=== PATIENT | female | born 1960 | race Caucasian/White ===

== ENCOUNTER 2023-04-06 15:17 | Inpatient (IN) | payer OTHER ==
[~2023-04-06] VITALS: Ht 157.5 cm; Wt 93.9 kg
[2023-04-06 15:43] LABS: BASOPHILS % (AUTO) 0.1 % (0.0-2.0); EOSINOPHILS # (AUTO) 0.1 K/uL (0.0-0.7); HEMATOCRIT 28.5 % (31.2-41.9); HEMOGLOBIN 9.8 g/dL (10.9-14.3); LYMPHOCYTES # (AUTO) 0.5 K/uL (0.8-4.8); LYMPHOCYTES % (AUTO) 7.3 % (20.5-51.5); MEAN CORPUSCULAR HEMOGLOBIN 40.2 uug (24.7-32.8); MEAN CORPUSCULAR HGB CONC 35 g/dL (32.3-35.6); MEAN CORPUSCULAR VOLUME 116.6 fL (75.5-95.3); MONOCYTES # (AUTO) 0.6 K/uL (0.1-1.30); MONOCYTES % (AUTO) 7.7 % (0.0-11.0); NEUTROPHILS % (AUTO) 83.9 % (38.5-71.5); PLATELET COUNT (AUTO) 95 K/uL (179-408); RED CELL DISTRIBUTION WIDTH 17.5 % (12.3-17.7); WHITE BLOOD COUNT (AUTO) 7.1 K/uL (3.8-11.8)
[2023-04-06 15:44] LABS: RED BLOOD CELL COUNT(AUTO) 2.44 MIL/uL (3.63-4.92)
[2023-04-06 15:45] LABS: DIFFERENTIAL COMMENT 1
[2023-04-06 15:56] LABS: CALCIUM 9.3 mg/dL (8.5-10.1); CARBON DIOXIDE 26 mmol/L (21-32); CHLORIDE 103 mmol/L (98-107); CREATININE 1.4 mg/dL (0.6-1.3); GLUCOSE 108 mg/dL (74-106); POTASSIUM 5.3 mmol/L (3.5-5.1); SODIUM SERUM 135 mmol/L (136-145); UREA NITROGEN, BLOOD 35 mg/dL (7-18)
[2023-04-06 16:01] LABS: ALANINE AMINOTRANSFERASE 40 U/L (14-59); ALKALINE PHOSPHATASE 156 U/L (50-136); ASPARTATE AMINOTRANSFERASE 51 U/L (15-37); BILIRUBIN,TOTAL 8.4 mg/dL (0.2-1.0); TOTAL PROTEIN, SERUM 7.5 g/dL (6.4-8.2)
[2023-04-06 16:08] LABS: THYROID STIMULATING HORMONE 4.417 mIU/mL (0.358-3.740)
[2023-04-06 16:18] LABS: ETHANOL < 3 MG/DL (0-10)
[2023-04-06] MEDS ORDERED: RIFAXIMIN 550 MG TABLET NG ONE (18:30)
[2023-04-06] MEDS ORDERED: LACTULOSE 20 G/30 ML LIQUID UDC NG ONE (18:30)
[2023-04-06 19:09] LABS: *BILIRUBIN,URIN NEGATIVE (NEGATIVE); *BLOOD, URINE NEGATIVE (NEGATIVE); *CLARITY,URINE CLEAR (CLEAR); *COLOR,URINE YELLOW (YELLOW); *KETONES,URINE NEGATIVE (NEGATIVE); *PROTEIN,URINE NEGATIVE (NEGATIVE); *UROBILINOGEN,URINE 0.2 E.U./dl (NORMAL); LEUKOCYTE ESTERASE ,URINE NEGATIVE (NEGATIVE); NITRITE, URINE NEGATIVE (NEGATIVE); PH,URINE 5.5 (5.0-8.0); UGLUCOSE NEGATIVE (NEGATIVE)
[2023-04-06 19:12] LABS: *URINE HCG, QUAL NEGATIVE (NEGATIVE)
[2023-04-06 19:15] LABS: *AMPHETAMINE, URINE POSITIVE (NEGATIVE); *BARBITURATE, URINE NEGATIVE (NEGATIVE); *BENZODIAZEPINE, URINE NEGATIVE (NEGATIVE); *CANNABINOID, URINE NEGATIVE (NEGATIVE); *COCCAINE, URINE NEGATIVE (NEGATIVE); *OPIATE, URINE NEGATIVE (NEGATIVE); *PHENCYCLIDINE SCREEN,URINE NEGATIVE (NEGATIVE); FENTANYL, URINE NEGATIVE (NEGATIVE)
[2023-04-06] MEDS ORDERED: RIFAXIMIN 550 MG TABLET ONE (19:20)
[2023-04-06] MEDS ORDERED: LACTULOSE 20 G/30 ML LIQUID UDC ONE (19:20)
[2023-04-06 20:40] VITALS: BP 116/83; TEMP 98; O2SAT 100
[2023-04-06] MEDS ORDERED: ONDANSETRON 4 MG/2 ML VIAL IV PRN (21:15)
[2023-04-06] MEDS: IV D5/ 0.9% NACL 1,000 ML IV PRN (22:48)
[2023-04-07] VITALS: BP 132/40; TEMP 98.2; O2SAT 99
[2023-04-07 04:00] VITALS: BP 121/45; TEMP 102.7; O2SAT 99
[2023-04-07] MEDS: ACETAMINOPHEN 650 MG SUPP.RECT RC PRN ×2 (04:39→13:42)
[2023-04-07 07:14] LABS: BASOPHILS % (AUTO) 0.4 % (0.0-2.0); EOSINOPHILS % (AUTO) 0.1 % (0.0-7.0); HEMATOCRIT 28.3 % (31.2-41.9); LYMPHOCYTES # (AUTO) 0.3 K/uL (0.8-4.8); MEAN CORPUSCULAR HEMOGLOBIN 41.2 uug (24.7-32.8); MEAN CORPUSCULAR HGB CONC 35 g/dL (32.3-35.6); MEAN CORPUSCULAR VOLUME 117.1 fL (75.5-95.3); MONOCYTES # (AUTO) 0.3 K/uL (0.1-1.30); MONOCYTES % (AUTO) 4.4 % (0.0-11.0); NEUTROPHILS # (AUTO) 5.9 K/uL (1.8-8.9); NEUTROPHILS % (AUTO) 90.1 % (38.5-71.5); PLATELET COUNT (AUTO) 90 K/uL (179-408); RED CELL DISTRIBUTION WIDTH 17.7 % (12.3-17.7); WHITE BLOOD COUNT (AUTO) 6.6 K/uL (3.8-11.8)
[2023-04-07 07:20] LABS: DIFFERENTIAL COMMENT 1; RED BLOOD CELL COUNT(AUTO) 2.42 MIL/uL (3.63-4.92)
[2023-04-07 07:25] LABS: AMMONIA 38 umol/L (11-32)
[2023-04-07] MEDS ORDERED: ENOXAPARIN SODIUM 80 MG/0.8 ML DISP.SYRIN SQ ONE (07:45)
[2023-04-07 07:54] LABS: ALANINE AMINOTRANSFERASE 42 U/L (14-59); ALBUMIN 1.8 g/dL (3.4-5.0); ALKALINE PHOSPHATASE 138 U/L (50-136); ASPARTATE AMINOTRANSFERASE 57 U/L (15-37); BILIRUBIN,TOTAL 9.9 mg/dL (0.2-1.0); CARBON DIOXIDE 21 mmol/L (21-32); CHLORIDE 106 mmol/L (98-107); CREATININE 1.8 mg/dL (0.6-1.3); GLUCOSE 123 mg/dL (74-106); PHOSPHOROUS 3.3 mg/dL (2.5-4.9); POTASSIUM 4.6 mmol/L (3.5-5.1); SODIUM SERUM 138 mmol/L (136-145); TOTAL PROTEIN, SERUM 6.9 g/dL (6.4-8.2); UREA NITROGEN, BLOOD 38 mg/dL (7-18)
[2023-04-07 08:02] LABS: CALCIUM 8.6 mg/dL (8.5-10.1)
[2023-04-07 08:30] LABS: IRON, SERUM 121 ug/dL (50-175)
[2023-04-07] MEDS: PANTOPRAZOLE SODIUM 40 MG VIAL IV SCH (09:28)
[2023-04-07] MEDS: LACTULOSE 20 G/30 ML LIQUID UDC NG SCH ×2 (09:29→21:56)
[2023-04-07 11:26] VITALS: BP 118/42; TEMP 100.5; O2SAT 99
[2023-04-07] MEDS ORDERED: MEROPENEM 500 MG in IV NORMAL SALINE 50 ML IV SCH (14:00)
[2023-04-07] MEDS ORDERED: MEROPENEM 0.5 G in IV NORMAL SALINE 50 ML IV SCH (14:00)
[2023-04-07] MEDS: MEROPENEM 500 MG in IV NORMAL SALINE 50 ML IV SCH (14:17)
[2023-04-07] MEDS ORDERED: VANCOMYCIN IV 1,000 MG in IV DEXTROSE 5% 250 ML IV ONE (15:00)
[2023-04-07] MEDS: IV D5/ 0.9% NACL 1,000 ML IV PRN (15:06)
[2023-04-07 16:04] VITALS: BP 105/48; TEMP 99.6; O2SAT 99
[2023-04-07 21:27] VITALS: BP 140/62; TEMP 98.8; O2SAT 96
[2023-04-07] MEDS: RIFAXIMIN 550 MG TABLET NG SCH (21:56)
[2023-04-08 00:20] VITALS: BP 140/62; TEMP 98.2; O2SAT 96
[2023-04-08] MEDS: MEROPENEM 500 MG in IV NORMAL SALINE 50 ML IV SCH ×2 (02:03→15:11)
[2023-04-08 04:55] VITALS: BP 138/68; TEMP 98; O2SAT 99
[2023-04-08 07:29] LABS: ALBUMIN 1.7 g/dL (3.4-5.0); BILIRUBIN,TOTAL 7.5 mg/dL (0.2-1.0); CALCIUM 9.3 mg/dL (8.5-10.1); CREATININE 2.7 mg/dL (0.6-1.3); MAGNESIUM 2.1 mg/dL (1.8-2.4); POTASSIUM 4.2 mmol/L (3.5-5.1); TOTAL PROTEIN, SERUM 6.6 g/dL (6.4-8.2); VANCOMYCIN,RANDOM 12.4 ug/mL (20.0-30.0)
[2023-04-08 07:45] LABS: *RHEUMATOID FACTOR SCREEN NEGATIVE (NEGATIVE)
[2023-04-08 07:52] LABS: BASOPHILS % (AUTO) 0.1 % (0.0-2.0); HEMATOCRIT 25.3 % (31.2-41.9); HEMOGLOBIN 8.6 g/dL (10.9-14.3); LYMPHOCYTES # (AUTO) 0.3 K/uL (0.8-4.8); LYMPHOCYTES % (AUTO) 4.7 % (20.5-51.5); MEAN CORPUSCULAR HEMOGLOBIN 40.9 uug (24.7-32.8); MEAN CORPUSCULAR HGB CONC 34 g/dL (32.3-35.6); MEAN CORPUSCULAR VOLUME 120.1 fL (75.5-95.3); MONOCYTES # (AUTO) 0.4 K/uL (0.1-1.30); MONOCYTES % (AUTO) 6.7 % (0.0-11.0); NEUTROPHILS # (AUTO) 5.6 K/uL (1.8-8.9); NEUTROPHILS % (AUTO) 88.5 % (38.5-71.5); PLATELET COUNT (AUTO) 55 K/uL (179-408); RED CELL DISTRIBUTION WIDTH 17.8 % (12.3-17.7); WHITE BLOOD COUNT (AUTO) 6.4 K/uL (3.8-11.8)
[2023-04-08 07:59] LABS: DIFFERENTIAL COMMENT 1; RED BLOOD CELL COUNT(AUTO) 2.11 MIL/uL (3.63-4.92)
[2023-04-08] MEDS ORDERED: VANCOMYCIN IV 1,000 MG in IV DEXTROSE 5% 250 ML IV ONE (09:00)
[2023-04-08] MEDS: RIFAXIMIN 550 MG TABLET NG SCH ×2 (09:52→20:24)
[2023-04-08] MEDS: LACTULOSE 20 G/30 ML LIQUID UDC NG SCH ×2 (09:52→20:24)
[2023-04-08] MEDS: PANTOPRAZOLE SODIUM 40 MG VIAL IV SCH (09:52)
[2023-04-08] MEDS ORDERED: FURO40TA5 PO (10:06)
[2023-04-08] MEDS ORDERED: NADO20TA3 PO (10:06)
[2023-04-08] MEDS ORDERED: SPIR100T5 PO (10:06)
[2023-04-08 11:46] LABS: BAND % (MANUAL) 2 % (0-10); LYMPHOCYTES % (MANUAL) 2 % (20-40); MONOCYTES % (MANUAL) 2 % (2-10); NEUTROPHILS % (MANUAL) 94 % (42-75); PLATELET ESTIMATE MARKED DECREASED
[2023-04-08 11:47] LABS: ANISOCYTOSIS 1+
[2023-04-08 11:56] VITALS: BP 101/40; TEMP 97.5; O2SAT 100
[2023-04-08] MEDS: ALBUMIN HUMAN 25% 100 ML IV SCH ×2 (13:32→18:23)
[2023-04-08 15:52] LABS: *CREATININE,URINE 213.2 mg/dL (30-125); *URINE TOTAL PROTEIN RANDOM 53.8 mg/dL (<150/24HR)
[2023-04-08 15:53] LABS: *BLOOD, URINE NEGATIVE (NEGATIVE); *CLARITY,URINE SLIGHTLY CLOUDY (CLEAR); *COLOR,URINE DARK YELLOW (YELLOW); *KETONES,URINE TRACE (NEGATIVE); *PROTEIN,URINE 1+ (NEGATIVE); *UROBILINOGEN,URINE 0.2 E.U./dl (NORMAL); LEUKOCYTE ESTERASE ,URINE NEGATIVE (NEGATIVE); NITRITE, URINE POSITIVE (NEGATIVE); UGLUCOSE NEGATIVE (NEGATIVE)
[2023-04-08 16:00] VITALS: BP 106/43; TEMP 98.1; O2SAT 100
[2023-04-08 16:06] LABS: *BILIRUBIN,URIN 1+ (NEGATIVE)
[2023-04-08 16:30] LABS: BACTERIA,URINE MANY /HPF (NONE SEEN); RBC,URINE 0-3 /HPF (0-3); SQUAMOUS EPITHELIAL CELL,UR MODERATE /HPF (NONE SEEN); WBC,URINE NONE SEEN /HPF (0-3); YEAST,URINE MANY /HPF (NONE SEEN)
[2023-04-08 16:31] LABS: COARSE GRANULAR CASTS,URINE 0-3 /LPF
[2023-04-08 20:00] VITALS: BP 103/47; TEMP 98.6; O2SAT 99
[2023-04-08] MEDS: REMEDY ESSENTIAL ZINC PASTE 113 GM TOP SCH (20:24)
[2023-04-09] VITALS (13 sets, daily range): BP systolic 92–125; BP diastolic 39–99; TEMP 98–99.7; O2SAT 97–99
[2023-04-09] MEDS: ALBUMIN HUMAN 25% 100 ML IV SCH ×2 (00:15→05:08)
[2023-04-09] MEDS: IV D5/ 0.9% NACL 1,000 ML IV PRN (00:20)
[2023-04-09] MEDS: MEROPENEM 500 MG in IV NORMAL SALINE 50 ML IV SCH ×2 (01:50→14:16)
[2023-04-09 07:35] LABS: BASOPHILS % (AUTO) 0.5 % (0.0-2.0); EOSINOPHILS % (AUTO) 0.9 % (0.0-7.0); LYMPHOCYTES # (AUTO) 0.2 K/uL (0.8-4.8); LYMPHOCYTES % (AUTO) 6.4 % (20.5-51.5); MEAN CORPUSCULAR HEMOGLOBIN 40.9 uug (24.7-32.8); MEAN CORPUSCULAR HGB CONC 35 g/dL (32.3-35.6); MEAN CORPUSCULAR VOLUME 116.6 fL (75.5-95.3); MONOCYTES # (AUTO) 0.4 K/uL (0.1-1.30); NEUTROPHILS # (AUTO) 2.9 K/uL (1.8-8.9); NEUTROPHILS % (AUTO) 80.2 % (38.5-71.5); RED CELL DISTRIBUTION WIDTH 16.8 % (12.3-17.7); WHITE BLOOD COUNT (AUTO) 3.6 K/uL (3.8-11.8)
[2023-04-09 07:51] LABS: ALBUMIN 2.5 g/dL (3.4-5.0); BILIRUBIN,TOTAL 4.8 mg/dL (0.2-1.0); CALCIUM 8.7 mg/dL (8.5-10.1); MAGNESIUM 2.1 mg/dL (1.8-2.4); PHOSPHOROUS 3.6 mg/dL (2.5-4.9); POTASSIUM 3.6 mmol/L (3.5-5.1); TOTAL PROTEIN, SERUM 5.9 g/dL (6.4-8.2)
[2023-04-09 07:52] LABS: DIFFERENTIAL COMMENT 1; HEMATOCRIT 19.7 % (31.2-41.9); HEMOGLOBIN 6.9 g/dL (10.9-14.3); PLATELET COUNT (AUTO) 30 K/uL (179-408); RED BLOOD CELL COUNT(AUTO) 1.69 MIL/uL (3.63-4.92)
[2023-04-09 08:06] LABS: *IMMUNOGLOBULIN G, SERUM 3167 mg/dL (586-1602); IMMUNOGLOBULIN A, SERUM 705 mg/dL (87-352); IMMUNOGLOBULIN M, SERUM 101 mg/dL (26-217)
[2023-04-09] MEDS: PANTOPRAZOLE SODIUM 40 MG VIAL IV SCH (08:48)
[2023-04-09] MEDS: LACTULOSE 20 G/30 ML LIQUID UDC NG SCH ×2 (08:49→21:24)
[2023-04-09] MEDS: REMEDY ESSENTIAL ZINC PASTE 113 GM TOP SCH (08:49)
[2023-04-09] MEDS: RIFAXIMIN 550 MG TABLET NG SCH ×2 (08:52→21:26)
[2023-04-09] MEDS ORDERED: VANCOMYCIN IV 750 MG in IV DEXTROSE 5% 250 ML IV ONE (09:00)
[2023-04-09 09:07] LABS: A/G RATIO 0.5 (0.7-1.7); ALBUMIN 2.1 g/dL (2.9-4.4); ALPHA-1-GLOBULIN 0.2 g/dL (0.0-0.4); ALPHA-2-GLOBULIN 0.3 g/dL (0.4-1.0); BETA GLOBULIN 0.9 g/dL (0.7-1.3); GAMMA GLOBULIN 2.9 g/dL (0.4-1.8); GLOBULIN, TOTAL 4.2 g/dL (2.2-3.9); M-SPIKE Not Observed g/dL (Not Observed)
[2023-04-09] MEDS: FUROSEMIDE 40 MG TABLET PO SCH (11:05)
[2023-04-09 11:36] LABS: LYMPHOCYTES % (MANUAL) 3 % (20-40); MONOCYTES % (MANUAL) 5 % (2-10); NEUTROPHILS % (MANUAL) 92 % (42-75)
[2023-04-09 11:37] LABS: ANISOCYTOSIS 1+; PLATELET ESTIMATE MARKED DECREASED
[2023-04-09 14:06] LABS: FREE KAPPA LT CHAINS SERUM 172.5 mg/L (3.3-19.4); FREE LAMBDA LT CHAIN SERUM 146.9 mg/L (5.7-26.3); HEPATITIS B SURFACE AB, QUAL Reactive (.); HEPATITIS B SURFACE AG Negative (Negative); HEPATITIS C VIRUS ANTIBODY Reactive (Non Reactive); KAPPA/LAMBDA RATIO SERUM 1.17 (0.26-1.65)
[2023-04-09] MEDS: METOPROLOL TARTRATE 25 MG TABLET PO SCH (17:04)
[2023-04-09 18:33] LABS: *OCCULT BLOOD STOOL NEGATIVE (NEGATIVE)
[2023-04-09 18:47] LABS: FIBRINOGEN ACTIVITY 120 mg/dL (210-360)
[2023-04-09] MEDS ORDERED: diphenhydrAMINE 50 MG/1 ML VIAL IV ONE ×2 (19:15→21:30)
[2023-04-09] MEDS ORDERED: PHYTONADIONE 10 MG/1 ML AMPUL SQ ONE ×2 (19:15→21:30)
[2023-04-09] MEDS ORDERED: ACETAMINOPHEN 325 MG TABLET PO ONE (19:15)
[2023-04-10 01:00] VITALS: BP 110/52; TEMP 97.8
[2023-04-10] MEDS: MEROPENEM 500 MG in IV NORMAL SALINE 50 ML IV SCH ×2 (01:55→14:17)
[2023-04-10] MEDS: LORAZEPAM 2 MG/1 ML VIAL IV PRN ×2 (02:04→09:07)
[2023-04-10] MEDS: REMEDY ESSENTIAL ZINC PASTE 113 GM TOP SCH ×3 (02:55→20:44)
[2023-04-10] MEDS: IV D5/ 0.9% NACL 1,000 ML IV PRN ×2 (03:29→09:08)
[2023-04-10 04:00] VITALS: BP 111/52; TEMP 98.4; O2SAT 97
[2023-04-10 06:06] LABS: PTH, INTACT 19 pg/mL (15-65)
[2023-04-10 06:29] LABS: BASOPHILS % (AUTO) 0.5 % (0.0-2.0); EOSINOPHILS # (AUTO) 0.1 K/uL (0.0-0.7); EOSINOPHILS % (AUTO) 0.6 % (0.0-7.0); HEMATOCRIT 23.4 % (31.2-41.9); HEMOGLOBIN 8.3 g/dL (10.9-14.3); LYMPHOCYTES # (AUTO) 0.3 K/uL (0.8-4.8); LYMPHOCYTES % (AUTO) 3.4 % (20.5-51.5); MEAN CORPUSCULAR HEMOGLOBIN 40.3 uug (24.7-32.8); MEAN CORPUSCULAR HGB CONC 36 g/dL (32.3-35.6); MEAN CORPUSCULAR VOLUME 113.1 fL (75.5-95.3); MONOCYTES # (AUTO) 0.6 K/uL (0.1-1.30); NEUTROPHILS # (AUTO) 7.7 K/uL (1.8-8.9); NEUTROPHILS % (AUTO) 88.5 % (38.5-71.5); RED CELL DISTRIBUTION WIDTH 19.7 % (12.3-17.7); WHITE BLOOD COUNT (AUTO) 8.7 K/uL (3.8-11.8)
[2023-04-10 07:02] LABS: CALCIUM 8.1 mg/dL (8.5-10.1); CREATININE 1.8 mg/dL (0.6-1.3); MAGNESIUM 2.1 mg/dL (1.8-2.4); PHOSPHOROUS 2.8 mg/dL (2.5-4.9); POTASSIUM 3.4 mmol/L (3.5-5.1)
[2023-04-10 07:07] LABS: DIFFERENTIAL COMMENT 1; PLATELET COUNT (AUTO) 29 K/uL (179-408); RED BLOOD CELL COUNT(AUTO) 2.07 MIL/uL (3.63-4.92)
[2023-04-10] MEDS: PANTOPRAZOLE SODIUM 40 MG VIAL IV SCH (08:52)
[2023-04-10] MEDS: LACTULOSE 20 G/30 ML LIQUID UDC NG SCH ×2 (08:52→20:44)
[2023-04-10] MEDS: FUROSEMIDE 40 MG TABLET PO SCH (08:57)
[2023-04-10] MEDS: SPIRONOLACTONE 50 MG TABLET PO SCH (08:58)
[2023-04-10] MEDS ORDERED: SPIRONOLACTONE 100 MG TABLET PO SCH (09:00)
[2023-04-10] MEDS ORDERED: NADOLOL 20 MG PO SCH (09:00)
[2023-04-10] MEDS ORDERED: VANCOMYCIN IV 1,000 MG in IV DEXTROSE 5% 250 ML IV ONE (09:00)
[2023-04-10] MEDS: RIFAXIMIN 550 MG TABLET NG SCH ×2 (09:05→20:43)
[2023-04-10 09:07] LABS: A/G RATIO 0.8 (0.7-1.7); ALBUMIN 2.6 g/dL (2.9-4.4); ALPHA-1-GLOBULIN 0.1 g/dL (0.0-0.4); ALPHA-2-GLOBULIN 0.2 g/dL (0.4-1.0); BETA GLOBULIN 0.6 g/dL (0.7-1.3); GAMMA GLOBULIN 2.3 g/dL (0.4-1.8); GLOBULIN, TOTAL 3.2 g/dL (2.2-3.9); M-SPIKE Not Observed g/dL (Not Observed)
[2023-04-10] MEDS: METOPROLOL TARTRATE 25 MG TABLET PO SCH ×2 (09:12→17:00)
[2023-04-10] MEDS ORDERED: POTASSIUM CHLORIDE 10 MEQ TAB.PRT.SR PO ONE (09:15)
[2023-04-10 09:18] LABS: EOSINOPHILS % (MANUAL) 1 % (0-8); LYMPHOCYTES % (MANUAL) 3 % (20-40); MONOCYTES % (MANUAL) 4 % (2-10); NEUTROPHILS % (MANUAL) 92 % (42-75); PLATELET ESTIMATE MARKED DECREASED
[2023-04-10 09:19] LABS: ANISOCYTOSIS 2+
[2023-04-10 11:36] VITALS: BP 100/70; TEMP 99.3; O2SAT 98
[2023-04-10 14:50] VITALS: BP 100/45; TEMP 98.3; O2SAT 98
[2023-04-10 15:06] LABS: ABG HCO3 18.6 mmol/L (22.0-26.0); ABG PCO2 25.7 mmHg (35.0-48.0); ABG PH 7.477 (7.340-7.440); ABG PO2 82.2 mmHg (75.0-100.0); ABG SITE RIGHT RADIAL; ABG TOTAL HEMOGLOBIN 9.2 G/dL (12.0-16.0); AaDO2 96.9 mmHg; COHb 0.2 % (0.0-3.9); MetHb 0.3 % (0.0-1.5); O2Hb 95.3 % (94.0-97.0)
[2023-04-10 15:48] VITALS: BP 108/40; TEMP 99.8; O2SAT 97
[2023-04-10 20:59] VITALS: BP 100/48; TEMP 97.8; O2SAT 100
[2023-04-11] MEDS: MEROPENEM 500 MG in IV NORMAL SALINE 50 ML IV SCH ×2 (01:15→14:13)
[2023-04-11 06:54] VITALS: BP 107/69; TEMP 97.4; O2SAT 100
[2023-04-11 07:20] LABS: BASOPHILS % (AUTO) 0.1 % (0.0-2.0); EOSINOPHILS # (AUTO) 0.1 K/uL (0.0-0.7); EOSINOPHILS % (AUTO) 1.1 % (0.0-7.0); HEMATOCRIT 23.5 % (31.2-41.9); HEMOGLOBIN 8.3 g/dL (10.9-14.3); LYMPHOCYTES # (AUTO) 0.3 K/uL (0.8-4.8); LYMPHOCYTES % (AUTO) 2.6 % (20.5-51.5); MEAN CORPUSCULAR HEMOGLOBIN 39.9 uug (24.7-32.8); MEAN CORPUSCULAR HGB CONC 36 g/dL (32.3-35.6); MEAN CORPUSCULAR VOLUME 112.6 fL (75.5-95.3); MONOCYTES # (AUTO) 0.9 K/uL (0.1-1.30); MONOCYTES % (AUTO) 9.1 % (0.0-11.0); NEUTROPHILS # (AUTO) 8.8 K/uL (1.8-8.9); NEUTROPHILS % (AUTO) 87.1 % (38.5-71.5); RED CELL DISTRIBUTION WIDTH 19.4 % (12.3-17.7); WHITE BLOOD COUNT (AUTO) 10.1 K/uL (3.8-11.8)
[2023-04-11 07:35] LABS: CALCIUM 8.5 mg/dL (8.5-10.1); CREATININE 1.7 mg/dL (0.6-1.3); PHOSPHOROUS 2.9 mg/dL (2.5-4.9); POTASSIUM 3.4 mmol/L (3.5-5.1); VANCOMYCIN,RANDOM 18.5 ug/mL (20.0-30.0)
[2023-04-11 08:00] VITALS: BP 99/41; TEMP 98.9; O2SAT 100
[2023-04-11 08:29] LABS: RED BLOOD CELL COUNT(AUTO) 2.08 MIL/uL (3.63-4.92)
[2023-04-11 08:30] LABS: DIFFERENTIAL COMMENT 1; PLATELET COUNT (AUTO) 30 K/uL (179-408)
[2023-04-11 08:57] LABS: LYMPHOCYTES % (MANUAL) 0 % (20-40); NEUTROPHILS % (MANUAL) 0 % (42-75)
[2023-04-11] MEDS: METOPROLOL TARTRATE 25 MG TABLET PO SCH ×2 (09:00→17:00)
[2023-04-11] MEDS: FUROSEMIDE 40 MG TABLET PO SCH (09:00)
[2023-04-11] MEDS: SPIRONOLACTONE 50 MG TABLET PO SCH (09:00)
[2023-04-11] MEDS ORDERED: VANCOMYCIN IV 750 MG in IV DEXTROSE 5% 250 ML IV ONE (09:00)
[2023-04-11] MEDS ORDERED: POTASSIUM CHLORIDE 10 MEQ TAB.PRT.SR PO ONE (09:15)
[2023-04-11] MEDS: IV D5/ 0.9% NACL 1,000 ML IV PRN (09:32)
[2023-04-11] MEDS: LACTULOSE 20 G/30 ML LIQUID UDC NG SCH ×2 (09:34→20:52)
[2023-04-11] MEDS: PANTOPRAZOLE SODIUM 40 MG VIAL IV SCH (09:35)
[2023-04-11] MEDS: RIFAXIMIN 550 MG TABLET NG SCH ×2 (09:35→20:53)
[2023-04-11] MEDS: REMEDY ESSENTIAL ZINC PASTE 113 GM TOP SCH ×2 (09:36→20:52)
[2023-04-11 11:30] VITALS: BP 87/47; TEMP 97.4; O2SAT 98
[2023-04-11 16:30] VITALS: BP 105/41; TEMP 98.5; O2SAT 100
[2023-04-11 20:12] VITALS: BP 103/50; TEMP 98.1; O2SAT 98
[2023-04-11] MEDS: ACETAMINOPHEN 325 MG TABLET PO PRN (20:52)
[2023-04-12] MEDS: MEROPENEM 500 MG in IV NORMAL SALINE 50 ML IV SCH ×2 (01:04→13:32)
[2023-04-12] MEDS: REMEDY ESSENTIAL ZINC PASTE 113 GM TOP PRN (02:31)
[2023-04-12] MEDS: ACETAMINOPHEN 325 MG TABLET PO PRN ×2 (03:15→21:05)
[2023-04-12 05:15] VITALS: BP 97/49; TEMP 98.7; O2SAT 99
[2023-04-12] MEDS: PANTOPRAZOLE SODIUM 40 MG TABLET.DR PO SCH (06:04)
[2023-04-12 07:19] LABS: HEMOGLOBIN 9.7 g/dL (10.9-14.3); MEAN CORPUSCULAR HGB CONC 35 g/dL (32.3-35.6)
[2023-04-12 07:23] LABS: BASOPHILS % (AUTO) 0.3 % (0.0-2.0); EOSINOPHILS # (AUTO) 0.1 K/uL (0.0-0.7); EOSINOPHILS % (AUTO) 1.3 % (0.0-7.0); LYMPHOCYTES # (AUTO) 0.3 K/uL (0.8-4.8); LYMPHOCYTES % (AUTO) 3.4 % (20.5-51.5); MEAN CORPUSCULAR HEMOGLOBIN 38.8 uug (24.7-32.8); MEAN CORPUSCULAR VOLUME 112.5 fL (75.5-95.3); MONOCYTES # (AUTO) 0.9 K/uL (0.1-1.30); MONOCYTES % (AUTO) 9.2 % (0.0-11.0); NEUTROPHILS # (AUTO) 8.6 K/uL (1.8-8.9); NEUTROPHILS % (AUTO) 85.8 % (38.5-71.5); RED CELL DISTRIBUTION WIDTH 18.7 % (12.3-17.7)
[2023-04-12 07:43] LABS: CALCIUM 8.5 mg/dL (8.5-10.1); CREATININE 1.6 mg/dL (0.6-1.3); POTASSIUM 3.6 mmol/L (3.5-5.1); VANCOMYCIN,RANDOM 17.5 ug/mL (20.0-30.0)
[2023-04-12 08:20] LABS: DIFFERENTIAL COMMENT 1; PLATELET COUNT (AUTO) 36 K/uL (179-408); RED BLOOD CELL COUNT(AUTO) 2.49 MIL/uL (3.63-4.92)
[2023-04-12 08:31] LABS: NEUTROPHILS % (MANUAL) 0 % (42-75)
[2023-04-12 08:32] LABS: LYMPHOCYTES % (MANUAL) 0 % (20-40)
[2023-04-12] MEDS: METOPROLOL TARTRATE 25 MG TABLET PO SCH ×2 (08:49→17:00)
[2023-04-12] MEDS: FUROSEMIDE 40 MG TABLET PO SCH (08:49)
[2023-04-12] MEDS: LACTULOSE 20 G/30 ML LIQUID UDC NG SCH ×2 (08:49→20:15)
[2023-04-12] MEDS: SPIRONOLACTONE 50 MG TABLET PO SCH (08:49)
[2023-04-12] MEDS: REMEDY ESSENTIAL ZINC PASTE 113 GM TOP SCH ×2 (08:50→20:15)
[2023-04-12] MEDS: RIFAXIMIN 550 MG TABLET NG SCH ×2 (08:55→20:15)
[2023-04-12 11:30] VITALS: BP 97/57; TEMP 97.5; O2SAT 99
[2023-04-12 16:43] VITALS: BP 108/54; TEMP 97.2; O2SAT 100
[2023-04-12 20:06] VITALS: BP 103/57; TEMP 97.5; O2SAT 98
[2023-04-13] MEDS: MEROPENEM 500 MG in IV NORMAL SALINE 50 ML IV SCH ×2 (01:21→12:34)
[2023-04-13 04:00] VITALS: BP 111/61; TEMP 97.7; O2SAT 100
[2023-04-13] MEDS: PANTOPRAZOLE SODIUM 40 MG TABLET.DR PO SCH (06:10)
[2023-04-13] MEDS: FUROSEMIDE 40 MG TABLET PO SCH (08:24)
[2023-04-13] MEDS: RIFAXIMIN 550 MG TABLET NG SCH ×2 (08:24→20:48)
[2023-04-13] MEDS: LACTULOSE 20 G/30 ML LIQUID UDC NG SCH ×2 (08:24→20:47)
[2023-04-13] MEDS: SPIRONOLACTONE 50 MG TABLET PO SCH (08:25)
[2023-04-13] MEDS: METOPROLOL TARTRATE 25 MG TABLET PO SCH ×2 (08:25→17:00)
[2023-04-13] MEDS: REMEDY ESSENTIAL ZINC PASTE 113 GM TOP SCH ×2 (08:26→20:49)
[2023-04-13 11:03] LABS: BASOPHILS % (AUTO) 0.1 % (0.0-2.0); DIFFERENTIAL COMMENT 0; EOSINOPHILS # (AUTO) 0.2 K/uL (0.0-0.7); EOSINOPHILS % (AUTO) 1.1 % (0.0-7.0); HEMATOCRIT 28.5 % (31.2-41.9); HEMOGLOBIN 9.6 g/dL (10.9-14.3); LYMPHOCYTES # (AUTO) 0.5 K/uL (0.8-4.8); LYMPHOCYTES % (AUTO) 3.1 % (20.5-51.5); MEAN CORPUSCULAR HEMOGLOBIN 37.9 uug (24.7-32.8); MEAN CORPUSCULAR HGB CONC 34 g/dL (32.3-35.6); MEAN CORPUSCULAR VOLUME 111.9 fL (75.5-95.3); MONOCYTES # (AUTO) 1.7 K/uL (0.1-1.30); NEUTROPHILS # (AUTO) 14.7 K/uL (1.8-8.9); NEUTROPHILS % (AUTO) 85.7 % (38.5-71.5); RED BLOOD CELL COUNT(AUTO) 2.54 MIL/uL (3.63-4.92); RED CELL DISTRIBUTION WIDTH 18.5 % (12.3-17.7); WHITE BLOOD COUNT (AUTO) 17.1 K/uL (3.8-11.8)
[2023-04-13 11:08] LABS: PLATELET COUNT (AUTO) 49 K/uL (179-408)
[2023-04-13 11:20] VITALS: BP 137/65; TEMP 98.4; O2SAT 99
[2023-04-13 11:27] LABS: ALBUMIN 1.9 g/dL (3.4-5.0); CALCIUM 8.2 mg/dL (8.5-10.1); MAGNESIUM 2.4 mg/dL (1.8-2.4); PHOSPHOROUS 4.6 mg/dL (2.5-4.9)
[2023-04-13 11:37] LABS: LYMPHOCYTES % (MANUAL) 0 % (20-40); NEUTROPHILS % (MANUAL) 0 % (42-75)
[2023-04-13 15:14] VITALS: BP 101/48; TEMP 98.6; O2SAT 98
[2023-04-13 20:56] VITALS: BP 112/65; TEMP 98; O2SAT 99
[2023-04-14] MEDS: MEROPENEM 500 MG in IV NORMAL SALINE 50 ML IV SCH ×2 (01:13→14:05)
[2023-04-14 05:37] VITALS: BP 102/43; TEMP 97.6; O2SAT 99
[2023-04-14] MEDS: PANTOPRAZOLE SODIUM 40 MG TABLET.DR PO SCH (06:36)
[2023-04-14 06:59] LABS: CREATININE 1.9 mg/dL (0.6-1.3); POTASSIUM 4.1 mmol/L (3.5-5.1)
[2023-04-14 07:32] LABS: CALCIUM 8.8 mg/dL (8.5-10.1)
[2023-04-14] MEDS: LACTULOSE 20 G/30 ML LIQUID UDC NG SCH ×2 (08:54→21:07)
[2023-04-14] MEDS: SPIRONOLACTONE 50 MG TABLET PO SCH (08:55)
[2023-04-14] MEDS: FUROSEMIDE 40 MG TABLET PO SCH (08:55)
[2023-04-14] MEDS: METOPROLOL TARTRATE 25 MG TABLET PO SCH ×2 (08:55→16:56)
[2023-04-14] MEDS: REMEDY ESSENTIAL ZINC PASTE 113 GM TOP SCH ×2 (08:56→21:12)
[2023-04-14] MEDS: RIFAXIMIN 550 MG TABLET NG SCH ×2 (08:57→21:11)
[2023-04-14 11:37] VITALS: BP 110/56; TEMP 98.2; O2SAT 100
[2023-04-14 11:43] LABS: BASOPHILS % (AUTO) 0.2 % (0.0-2.0); EOSINOPHILS # (AUTO) 0.2 K/uL (0.0-0.7); EOSINOPHILS % (AUTO) 0.7 % (0.0-7.0); HEMATOCRIT 31.6 % (31.2-41.9); HEMOGLOBIN 10.6 g/dL (10.9-14.3); LYMPHOCYTES # (AUTO) 0.6 K/uL (0.8-4.8); LYMPHOCYTES % (AUTO) 2.7 % (20.5-51.5); MEAN CORPUSCULAR HEMOGLOBIN 37.3 uug (24.7-32.8); MEAN CORPUSCULAR HGB CONC 33 g/dL (32.3-35.6); MEAN CORPUSCULAR VOLUME 111.6 fL (75.5-95.3); MONOCYTES # (AUTO) 1.8 K/uL (0.1-1.30); MONOCYTES % (AUTO) 7.8 % (0.0-11.0); NEUTROPHILS % (AUTO) 88.6 % (38.5-71.5); PLATELET COUNT (AUTO) 69 K/uL (179-408); RED BLOOD CELL COUNT(AUTO) 2.83 MIL/uL (3.63-4.92); RED CELL DISTRIBUTION WIDTH 18.1 % (12.3-17.7); WHITE BLOOD COUNT (AUTO) 22.6 K/uL (3.8-11.8)
[2023-04-14 11:59] LABS: DIFFERENTIAL COMMENT 1
[2023-04-14] MEDS ORDERED: VANCOMYCIN IV 1,250 MG in IV DEXTROSE 5% 250 ML IV ONE (13:00)
[2023-04-14 15:29] LABS: *BLOOD, URINE 3+ (NEGATIVE); *CLARITY,URINE SLIGHTLY CLOUDY (CLEAR); *COLOR,URINE YELLOW (YELLOW); *KETONES,URINE NEGATIVE (NEGATIVE); *PROTEIN,URINE 2+ (NEGATIVE); *UROBILINOGEN,URINE 0.2 E.U./dl (NORMAL); LEUKOCYTE ESTERASE ,URINE TRACE (NEGATIVE); NITRITE, URINE NEGATIVE (NEGATIVE); UGLUCOSE NEGATIVE (NEGATIVE)
[2023-04-14 15:31] LABS: *BILIRUBIN,URIN 2+ (NEGATIVE)
[2023-04-14 16:00] VITALS: BP 116/58; TEMP 98.7; O2SAT 99
[2023-04-14 16:11] LABS: BACTERIA,URINE MANY /HPF (NONE SEEN); RBC,URINE TNTC /HPF (0-3); WBC,URINE 20-50 /HPF (0-3)
[2023-04-14 16:12] LABS: SQUAMOUS EPITHELIAL CELL,UR NONE SEEN /HPF (NONE SEEN); YEAST,URINE MANY /HPF (NONE SEEN)
[2023-04-14 20:30] VITALS: BP 94/52; TEMP 97.6; O2SAT 98
[2023-04-15] VITALS (8 sets, daily range): BP systolic 87–108; BP diastolic 29–50; TEMP 97.7–98.9; O2SAT 97–100
[2023-04-15] MEDS: MEROPENEM 500 MG in IV NORMAL SALINE 50 ML IV SCH ×2 (02:01→14:20)
[2023-04-15] MEDS: PANTOPRAZOLE SODIUM 40 MG TABLET.DR PO SCH (06:33)
[2023-04-15 08:01] LABS: BASOPHILS # (AUTO) 0.1 K/UL (0.0-0.2); BASOPHILS % (AUTO) 0.5 % (0.0-2.0); EOSINOPHILS # (AUTO) 0.1 K/uL (0.0-0.7); EOSINOPHILS % (AUTO) 0.6 % (0.0-7.0); HEMATOCRIT 28.9 % (31.2-41.9); HEMOGLOBIN 9.7 g/dL (10.9-14.3); LYMPHOCYTES # (AUTO) 0.5 K/uL (0.8-4.8); MEAN CORPUSCULAR HEMOGLOBIN 37.6 uug (24.7-32.8); MEAN CORPUSCULAR HGB CONC 34 g/dL (32.3-35.6); MEAN CORPUSCULAR VOLUME 111.5 fL (75.5-95.3); MONOCYTES # (AUTO) 1.4 K/uL (0.1-1.30); MONOCYTES % (AUTO) 6.1 % (0.0-11.0); NEUTROPHILS # (AUTO) 20.9 K/uL (1.8-8.9); NEUTROPHILS % (AUTO) 90.8 % (38.5-71.5); PLATELET COUNT (AUTO) 84 K/uL (179-408); RED BLOOD CELL COUNT(AUTO) 2.59 MIL/uL (3.63-4.92); RED CELL DISTRIBUTION WIDTH 17.7 % (12.3-17.7)
[2023-04-15 08:34] LABS: DIFFERENTIAL COMMENT 1
[2023-04-15] MEDS: LACTULOSE 20 G/30 ML LIQUID UDC NG SCH (08:44)
[2023-04-15] MEDS: RIFAXIMIN 550 MG TABLET NG SCH ×2 (08:44→22:15)
[2023-04-15] MEDS: SPIRONOLACTONE 50 MG TABLET PO SCH (08:44)
[2023-04-15] MEDS: METOPROLOL TARTRATE 25 MG TABLET PO SCH ×2 (08:45→17:00)
[2023-04-15] MEDS: FUROSEMIDE 40 MG TABLET PO SCH (08:45)
[2023-04-15] MEDS: REMEDY ESSENTIAL ZINC PASTE 113 GM TOP SCH ×2 (08:46→22:15)
[2023-04-15] MEDS ORDERED: IV NORMAL SALINE 500 ML IV ONE (09:15)
[2023-04-16] VITALS (9 sets, daily range): BP systolic 91–114; BP diastolic 40–64; TEMP 97.7–98.5; O2SAT 98–100
[2023-04-16] MEDS: MEROPENEM 500 MG in IV NORMAL SALINE 50 ML IV SCH ×2 (02:16→14:13)
[2023-04-16 07:40] LABS: BASOPHILS # (AUTO) 0.1 K/UL (0.0-0.2); BASOPHILS % (AUTO) 0.5 % (0.0-2.0); EOSINOPHILS # (AUTO) 0.1 K/uL (0.0-0.7); EOSINOPHILS % (AUTO) 0.4 % (0.0-7.0); HEMATOCRIT 26.2 % (31.2-41.9); LYMPHOCYTES # (AUTO) 0.4 K/uL (0.8-4.8); LYMPHOCYTES % (AUTO) 2.6 % (20.5-51.5); MEAN CORPUSCULAR HEMOGLOBIN 38.5 uug (24.7-32.8); MEAN CORPUSCULAR HGB CONC 35 g/dL (32.3-35.6); MEAN CORPUSCULAR VOLUME 111.6 fL (75.5-95.3); MONOCYTES % (AUTO) 5.7 % (0.0-11.0); NEUTROPHILS # (AUTO) 15.6 K/uL (1.8-8.9); NEUTROPHILS % (AUTO) 90.8 % (38.5-71.5); PLATELET COUNT (AUTO) 81 K/uL (179-408); RED CELL DISTRIBUTION WIDTH 17.5 % (12.3-17.7); WHITE BLOOD COUNT (AUTO) 17.2 K/uL (3.8-11.8)
[2023-04-16] MEDS: PANTOPRAZOLE SODIUM 40 MG TABLET.DR PO SCH (07:41)
[2023-04-16 07:46] LABS: DIFFERENTIAL COMMENT 1; RED BLOOD CELL COUNT(AUTO) 2.35 MIL/uL (3.63-4.92)
[2023-04-16] MEDS: SPIRONOLACTONE 50 MG TABLET PO SCH (08:51)
[2023-04-16] MEDS: FUROSEMIDE 40 MG TABLET PO SCH (08:51)
[2023-04-16] MEDS: RIFAXIMIN 550 MG TABLET NG SCH ×2 (08:52→21:00)
[2023-04-16] MEDS: REMEDY ESSENTIAL ZINC PASTE 113 GM TOP SCH ×2 (08:53→21:26)
[2023-04-16] MEDS: METOPROLOL TARTRATE 25 MG TABLET PO SCH ×2 (09:01→17:00)
[2023-04-16 13:54] LABS: BILIRUBIN,TOTAL 10.3 mg/dL (0.2-1.0); CALCIUM 9.1 mg/dL (8.5-10.1); CREATININE 2.8 mg/dL (0.6-1.3); MAGNESIUM 2.9 mg/dL (1.8-2.4); PHOSPHOROUS 7.5 mg/dL (2.5-4.9); POTASSIUM 5.2 mmol/L (3.5-5.1); TOTAL PROTEIN, SERUM 6.4 g/dL (6.4-8.2)
[2023-04-16] MEDS ORDERED: TRAMADOL HCL 50 MG TABLET PO PRN (14:15)
[2023-04-16] MEDS: REMEDY ESSENTIAL ZINC PASTE 113 GM TOP PRN (17:05)
[2023-04-16] MEDS: DOXYCYCLINE HYCLATE 100 MG TABLET PO SCH (21:14)
[2023-04-17] MEDS: HYDROCODONE/APAP 10-325 MG TABLET PO PRN ×2 (01:13→17:07)
[2023-04-17] MEDS: MEROPENEM 500 MG in IV NORMAL SALINE 50 ML IV SCH ×2 (02:48→14:14)
[2023-04-17 04:30] VITALS: BP 95/40; TEMP 98.4; O2SAT 98
[2023-04-17] MEDS: PANTOPRAZOLE SODIUM 40 MG TABLET.DR PO SCH (06:29)
[2023-04-17 07:01] LABS: BASOPHILS # (AUTO) 0.2 K/UL (0.0-0.2); BASOPHILS % (AUTO) 1.6 % (0.0-2.0); EOSINOPHILS # (AUTO) 0.1 K/uL (0.0-0.7); EOSINOPHILS % (AUTO) 0.9 % (0.0-7.0); HEMATOCRIT 23.6 % (31.2-41.9); HEMOGLOBIN 8.2 g/dL (10.9-14.3); LYMPHOCYTES # (AUTO) 0.5 K/uL (0.8-4.8); LYMPHOCYTES % (AUTO) 3.7 % (20.5-51.5); MEAN CORPUSCULAR HEMOGLOBIN 38.9 uug (24.7-32.8); MEAN CORPUSCULAR HGB CONC 35 g/dL (32.3-35.6); MEAN CORPUSCULAR VOLUME 112.6 fL (75.5-95.3); MONOCYTES % (AUTO) 6.6 % (0.0-11.0); NEUTROPHILS # (AUTO) 12.7 K/uL (1.8-8.9); NEUTROPHILS % (AUTO) 87.2 % (38.5-71.5); PLATELET COUNT (AUTO) 79 K/uL (179-408); RED CELL DISTRIBUTION WIDTH 17.2 % (12.3-17.7); WHITE BLOOD COUNT (AUTO) 14.6 K/uL (3.8-11.8)
[2023-04-17 07:21] LABS: DIFFERENTIAL COMMENT 1
[2023-04-17 08:00] VITALS: BP 81/36; TEMP 97.9; O2SAT 98
[2023-04-17] MEDS: METOPROLOL TARTRATE 25 MG TABLET PO SCH ×2 (09:00→17:00)
[2023-04-17] MEDS: DOXYCYCLINE HYCLATE 100 MG TABLET PO SCH ×2 (09:16→20:15)
[2023-04-17] MEDS: RIFAXIMIN 550 MG TABLET NG SCH ×2 (09:16→20:15)
[2023-04-17] MEDS: REMEDY ESSENTIAL ZINC PASTE 113 GM TOP SCH ×2 (09:17→20:16)
[2023-04-17 11:59] VITALS: BP 91/46; TEMP 97.6; O2SAT 99
[2023-04-17] MEDS ORDERED: VANCOMYCIN IV 1,250 MG in IV DEXTROSE 5% 250 ML IV ONE (14:00)
[2023-04-17 14:21] LABS: ALBUMIN,BODY FLUID 0.2 g/dL
[2023-04-17 15:36] LABS: TOTAL VOLUME,BODY FLUID 5045 mL
[2023-04-17 15:40] LABS: PH, BODY FLUID 6.5
[2023-04-17 15:41] LABS: WBC, BODY FLUID 10000 /cu. mm (0-200/cu.mm)
[2023-04-17 15:54] LABS: MACROPHAGES, BODY FLUID 40
[2023-04-17 15:55] LABS: MONOCYTES,BODY FLUID 8 %; POLYNUCLEAR, BODY FLUID 14 % (0-25 %)
[2023-04-17 16:06] VITALS: BP 99/48; TEMP 97.8; O2SAT 99
[2023-04-17 20:08] VITALS: BP 92/46; TEMP 97.6; O2SAT 99
[2023-04-17] MEDS ORDERED: FLUCONAZOLE 200 MG TABLET PO ONE (22:00)
[2023-04-18] MEDS ORDERED: FLUCONAZOLE 200 MG TABLET PO ONE (00:30)
[2023-04-18] MEDS ORDERED: FLUCONAZOLE 100 MG TABLET ONE ×2 (01:59)
[2023-04-18] MEDS: MEROPENEM 500 MG in IV NORMAL SALINE 50 ML IV SCH ×2 (02:46→14:12)
[2023-04-18 04:39] VITALS: BP 103/39; TEMP 97.6; O2SAT 100
[2023-04-18 06:08] LABS: BASOPHILS # (AUTO) 0.2 K/UL (0.0-0.2); BASOPHILS % (AUTO) 1.3 % (0.0-2.0); EOSINOPHILS # (AUTO) 0.1 K/uL (0.0-0.7); EOSINOPHILS % (AUTO) 0.8 % (0.0-7.0); HEMATOCRIT 27.8 % (31.2-41.9); HEMOGLOBIN 9.4 g/dL (10.9-14.3); LYMPHOCYTES # (AUTO) 0.6 K/uL (0.8-4.8); LYMPHOCYTES % (AUTO) 3.7 % (20.5-51.5); MEAN CORPUSCULAR HEMOGLOBIN 37.8 uug (24.7-32.8); MEAN CORPUSCULAR HGB CONC 34 g/dL (32.3-35.6); MEAN CORPUSCULAR VOLUME 112.4 fL (75.5-95.3); MONOCYTES # (AUTO) 1.1 K/uL (0.1-1.30); MONOCYTES % (AUTO) 6.8 % (0.0-11.0); NEUTROPHILS % (AUTO) 87.4 % (38.5-71.5); PLATELET COUNT (AUTO) 109 K/uL (179-408)
[2023-04-18] MEDS: PANTOPRAZOLE SODIUM 40 MG TABLET.DR PO SCH (06:08)
[2023-04-18] MEDS: HYDROCODONE/APAP 10-325 MG TABLET PO PRN (07:03)
[2023-04-18 07:17] LABS: DIFFERENTIAL COMMENT 1; RED BLOOD CELL COUNT(AUTO) 2.47 MIL/uL (3.63-4.92)
[2023-04-18 07:53] LABS: ALBUMIN 1.7 g/dL (3.4-5.0); BILIRUBIN,TOTAL 9.1 mg/dL (0.2-1.0); CALCIUM 8.7 mg/dL (8.5-10.1); CREATININE 3.6 mg/dL (0.6-1.3); MAGNESIUM 2.8 mg/dL (1.8-2.4); POTASSIUM 5.5 mmol/L (3.5-5.1); TOTAL PROTEIN, SERUM 6.6 g/dL (6.4-8.2)
[2023-04-18 08:00] VITALS: BP 99/42; TEMP 97.5; O2SAT 100
[2023-04-18] MEDS: DOXYCYCLINE HYCLATE 100 MG TABLET PO SCH ×2 (08:23→21:57)
[2023-04-18] MEDS: SEVELAMER CARBONATE 800 MG TABLET PO SCH ×3 (08:23→17:24)
[2023-04-18] MEDS: METOPROLOL TARTRATE 25 MG TABLET PO SCH ×2 (08:24→17:00)
[2023-04-18] MEDS: ALBUMIN HUMAN 25% 100 ML IV SCH ×3 (08:26→20:34)
[2023-04-18] MEDS: REMEDY ESSENTIAL ZINC PASTE 113 GM TOP SCH ×2 (08:27→21:57)
[2023-04-18] MEDS: RIFAXIMIN 550 MG TABLET NG SCH ×2 (08:27→21:57)
[2023-04-18] MEDS ORDERED: SODIUM POLYSTYRENE SULFONATE 15 G/60 ML LIQUID UDC PO ONE (09:00)
[2023-04-18] MEDS: TRAMADOL HCL 50 MG TABLET PO PRN (10:44)
[2023-04-18 11:49] VITALS: BP 110/40; TEMP 97.3; O2SAT 100
[2023-04-18 14:05] LABS: CALCIUM 8.6 mg/dL (8.5-10.1); CREATININE 3.6 mg/dL (0.6-1.3); POTASSIUM 5.6 mmol/L (3.5-5.1)
[2023-04-18 15:07] LABS: BAND % (MANUAL) 2 % (0-10); LYMPHOCYTES % (MANUAL) 6 % (20-40); NEUTROPHILS % (MANUAL) 87 % (42-75)
[2023-04-18 15:08] LABS: EOSINOPHILS % (MANUAL) 1 % (0-8); MONOCYTES % (MANUAL) 4 % (2-10); PLATELET ESTIMATE DECREASED
[2023-04-18 16:11] VITALS: BP 98/43; TEMP 97.6; O2SAT 96
[2023-04-18 20:20] VITALS: BP 98/56; TEMP 98; O2SAT 98
[2023-04-19] VITALS (11 sets, daily range): BP systolic 102–121; BP diastolic 38–55; TEMP 97.6–98.4; O2SAT 97–100
[2023-04-19] MEDS: MEROPENEM 500 MG in IV NORMAL SALINE 50 ML IV SCH ×2 (02:04→13:57)
[2023-04-19] MEDS: ALBUMIN HUMAN 25% 100 ML IV SCH (02:07)
[2023-04-19] MEDS: PANTOPRAZOLE SODIUM 40 MG TABLET.DR PO SCH (06:36)
[2023-04-19 06:56] LABS: BASOPHILS % (AUTO) 0.3 % (0.0-2.0); EOSINOPHILS # (AUTO) 0.1 K/uL (0.0-0.7); EOSINOPHILS % (AUTO) 1.2 % (0.0-7.0); LYMPHOCYTES # (AUTO) 0.4 K/uL (0.8-4.8); LYMPHOCYTES % (AUTO) 4.5 % (20.5-51.5); MEAN CORPUSCULAR HEMOGLOBIN 38.4 uug (24.7-32.8); MEAN CORPUSCULAR HGB CONC 34 g/dL (32.3-35.6); MEAN CORPUSCULAR VOLUME 113.6 fL (75.5-95.3); MONOCYTES # (AUTO) 0.7 K/uL (0.1-1.30); MONOCYTES % (AUTO) 8.1 % (0.0-11.0); NEUTROPHILS # (AUTO) 7.3 K/uL (1.8-8.9); NEUTROPHILS % (AUTO) 85.9 % (38.5-71.5); PLATELET COUNT (AUTO) 64 K/uL (179-408); RED CELL DISTRIBUTION WIDTH 17.1 % (12.3-17.7); WHITE BLOOD COUNT (AUTO) 8.5 K/uL (3.8-11.8)
[2023-04-19 07:21] LABS: ALBUMIN 2.6 g/dL (3.4-5.0); BILIRUBIN,TOTAL 8.2 mg/dL (0.2-1.0); CALCIUM 8.6 mg/dL (8.5-10.1); CREATININE 3.4 mg/dL (0.6-1.3); MAGNESIUM 2.8 mg/dL (1.8-2.4); POTASSIUM 5.2 mmol/L (3.5-5.1); TOTAL PROTEIN, SERUM 6.3 g/dL (6.4-8.2)
[2023-04-19 07:24] LABS: DIFFERENTIAL COMMENT 1; RED BLOOD CELL COUNT(AUTO) 1.75 MIL/uL (3.63-4.92)
[2023-04-19 07:30] LABS: HEMATOCRIT 19.9 % (31.2-41.9); HEMOGLOBIN 6.7 g/dL (10.9-14.3)
[2023-04-19 07:31] LABS: PHOSPHOROUS 9.3 mg/dL (2.5-4.9)
[2023-04-19] MEDS: DOXYCYCLINE HYCLATE 100 MG TABLET PO SCH ×2 (08:28→22:05)
[2023-04-19] MEDS: RIFAXIMIN 550 MG TABLET NG SCH ×2 (08:28→22:04)
[2023-04-19] MEDS: SEVELAMER CARBONATE 800 MG TABLET PO SCH ×3 (08:28→17:16)
[2023-04-19] MEDS: METOPROLOL TARTRATE 25 MG TABLET PO SCH ×2 (08:29→17:00)
[2023-04-19] MEDS: REMEDY ESSENTIAL ZINC PASTE 113 GM TOP SCH ×2 (08:30→22:05)
[2023-04-19 17:01] LABS: BAND % (MANUAL) 16 % (0-10); EOSINOPHILS % (MANUAL) 1 % (0-8); LYMPHOCYTES % (MANUAL) 7 % (20-40); METAMYELOCYTES % 4 % (0-1); MONOCYTES % (MANUAL) 7 % (2-10); NEUTROPHILS % (MANUAL) 65 % (42-75); PLATELET ESTIMATE DECREASED
[2023-04-19 17:02] LABS: ANISOCYTOSIS 2+
[2023-04-19] MEDS ORDERED: diphenhydrAMINE 50 MG/1 ML VIAL IV ONE (17:30)
[2023-04-19] MEDS ORDERED: ACETAMINOPHEN 325 MG TABLET PO ONE (17:30)
[2023-04-20] VITALS (19 sets, daily range): BP systolic 79–132; BP diastolic 29–63; TEMP 97.3–98.3; O2SAT 100
[2023-04-20] MEDS: TRAMADOL HCL 50 MG TABLET PO PRN ×2 (00:44→18:45)
[2023-04-20] MEDS: MEROPENEM 500 MG in IV NORMAL SALINE 50 ML IV SCH ×2 (01:53→13:48)
[2023-04-20 05:59] LABS: BASOPHILS % (AUTO) 0.6 % (0.0-2.0); EOSINOPHILS # (AUTO) 0.1 K/uL (0.0-0.7); EOSINOPHILS % (AUTO) 1.3 % (0.0-7.0); HEMATOCRIT 22.5 % (31.2-41.9); HEMOGLOBIN 7.8 g/dL (10.9-14.3); LYMPHOCYTES # (AUTO) 0.3 K/uL (0.8-4.8); LYMPHOCYTES % (AUTO) 3.8 % (20.5-51.5); MEAN CORPUSCULAR HEMOGLOBIN 36.8 uug (24.7-32.8); MEAN CORPUSCULAR HGB CONC 35 g/dL (32.3-35.6); MEAN CORPUSCULAR VOLUME 106.4 fL (75.5-95.3); MONOCYTES # (AUTO) 0.7 K/uL (0.1-1.30); MONOCYTES % (AUTO) 7.7 % (0.0-11.0); NEUTROPHILS # (AUTO) 7.3 K/uL (1.8-8.9); NEUTROPHILS % (AUTO) 86.6 % (38.5-71.5); PLATELET COUNT (AUTO) 58 K/uL (179-408); RED CELL DISTRIBUTION WIDTH 22.8 % (12.3-17.7); WHITE BLOOD COUNT (AUTO) 8.4 K/uL (3.8-11.8)
[2023-04-20 06:08] LABS: DIFFERENTIAL COMMENT 1; RED BLOOD CELL COUNT(AUTO) 2.12 MIL/uL (3.63-4.92)
[2023-04-20 06:10] LABS: CALCIUM 8.2 mg/dL (8.5-10.1); CREATININE 2.8 mg/dL (0.6-1.3); POTASSIUM 4.8 mmol/L (3.5-5.1)
[2023-04-20] MEDS: PANTOPRAZOLE SODIUM 40 MG TABLET.DR PO SCH (06:41)
[2023-04-20] MEDS ORDERED: LIDOCAINE HCL 1% 20 ML VIAL ONE (07:01)
[2023-04-20] MEDS ORDERED: BUPIVACAINE 0.25% 30 ML VIAL ONE (07:02)
[2023-04-20] MEDS ORDERED: FENTANYL CITRATE 100 MCG/2 ML AMPUL ONE (07:29)
[2023-04-20] MEDS: SEVELAMER CARBONATE 800 MG TABLET PO SCH ×3 (08:00→17:05)
[2023-04-20] MEDS ORDERED: THROMBIN (BOVINE) 5,000 UNITS VIAL ONE (08:15)
[2023-04-20] MEDS ORDERED: ALBUMIN HUMAN 5% 250 ML ONE (08:21)
[2023-04-20] MEDS ORDERED: BUPIVACAINE PF 0.5% 30 ML VIAL ONE ×2 (08:23→09:02)
[2023-04-20] MEDS: METOPROLOL TARTRATE 25 MG TABLET PO SCH ×2 (09:00→16:55)
[2023-04-20] MEDS: DOXYCYCLINE HYCLATE 100 MG TABLET PO SCH ×2 (09:00→20:43)
[2023-04-20] MEDS: REMEDY ESSENTIAL ZINC PASTE 113 GM TOP SCH ×2 (09:00→20:44)
[2023-04-20] MEDS: RIFAXIMIN 550 MG TABLET NG SCH ×2 (09:00→20:43)
[2023-04-20] MEDS ORDERED: HYDROMORPHONE 1 MG/1 ML DISP.SYRIN ONE ×2 (09:22→09:48)
[2023-04-20] MEDS: IV D5/ 0.9% NACL 1,000 ML IV SCH (15:37)
[2023-04-20] MEDS ORDERED: PHENYLEPHRINE 10 MG/1 ML VIAL ONE (17:00)
[2023-04-20] MEDS ORDERED: PROPOFOL 200 MG/20 ML BOTTLE ONE ×3 (17:00)
[2023-04-20] MEDS ORDERED: NEOSTIGMINE METHYLSULFATE 10 MG/10 ML VIAL ONE (17:00)
[2023-04-20] MEDS ORDERED: ONDANSETRON 4 MG/2 ML VIAL ONE (17:00)
[2023-04-20] MEDS ORDERED: CEFAZOLIN 1 G VIAL ONE ×4 (17:00)
[2023-04-20] MEDS ORDERED: EPHEDRINE SULFATE 50 MG/ML AMPUL ONE ×2 (17:00)
[2023-04-20] MEDS ORDERED: LIDOCAINE-MPF 2% 5 ML VIAL ONE ×3 (17:00)
[2023-04-20] MEDS ORDERED: METOCLOPRAMIDE HCL 10 MG/2 ML VIAL ONE (17:00)
[2023-04-20] MEDS ORDERED: GLYCOPYRROLATE 0.2 MG/ML VIAL ONE ×4 (17:00)
[2023-04-20] MEDS ORDERED: DEXAMETHASONE SOD PHOSPHATE 4 MG INJ ONE ×3 (17:00)
[2023-04-20] MEDS: MORPHINE SULFATE 2 MG/1 ML DISP.SYRIN IV PRN ×2 (18:09→23:42)
[2023-04-20 18:12] LABS: HEMATOCRIT 25.1 % (31.2-41.9); HEMOGLOBIN 8.1 g/dL (10.9-14.3)
[2023-04-20] MEDS: ACETAMINOPHEN 325 MG TABLET PO PRN (20:43)
[2023-04-20] MEDS ORDERED: TEMAZEPAM 7.5 MG CAPSULE PO PRN (23:00)
[2023-04-20] MEDS: NOREPINEPHRINE BITARTRATE 8 MG in IV NORMAL SALINE 242 ML IV PRN (23:24)
[2023-04-20 23:56] LABS: HEMATOCRIT 24.1 % (31.2-41.9); HEMOGLOBIN 7.5 g/dL (10.9-14.3)
[2023-04-21] VITALS (27 sets, daily range): BP systolic 0–146; BP diastolic 0–98; TEMP 99; O2SAT 45–100
[2023-04-21] MEDS ORDERED: DEXTROSE 50% 50 ML DISP.SYRIN ONE
[2023-04-21] MEDS ORDERED: CALCIUM CHLORIDE 1 GM/10 ML DISP.SYRIN IVP ONE
[2023-04-21] MEDS ORDERED: EPINEPHRINE 1:10,000 1 MG/10 ML DISP.SYRIN ONE
[2023-04-21] MEDS: MEROPENEM 500 MG in IV NORMAL SALINE 50 ML IV SCH (01:47)
[2023-04-21] MEDS: IV D5/ 0.9% NACL 1,000 ML IV SCH (04:43)
[2023-04-21] MEDS: NOREPINEPHRINE BITARTRATE 8 MG in IV NORMAL SALINE 242 ML IV PRN ×2 (04:44→08:10)
[2023-04-21] MEDS: MORPHINE SULFATE 2 MG/1 ML DISP.SYRIN IV PRN (05:08)
[2023-04-21 05:23] LABS: CALCIUM 7.9 mg/dL (8.5-10.1); CHLORIDE 101 mmol/L (98-107); CREATININE 3.6 mg/dL (0.6-1.3); GLUCOSE 108 mg/dL (74-106); SODIUM SERUM 131 mmol/L (136-145)
[2023-04-21 06:00] LABS: POTASSIUM 6.3 mmol/L (3.5-5.1); UREA NITROGEN, BLOOD 99 mg/dL (7-18)
[2023-04-21 06:01] LABS: CARBON DIOXIDE < 5 mmol/L (21-32)
[2023-04-21] MEDS ORDERED: LACTULOSE 20 G/30 ML LIQUID UDC PO ONE (06:15)
[2023-04-21] MEDS ORDERED: SODIUM POLYSTYRENE SULFONATE 15 G/60 ML LIQUID UDC PO ONE (06:15)
[2023-04-21] MEDS: PANTOPRAZOLE SODIUM 40 MG TABLET.DR PO SCH (07:00)
[2023-04-21 07:10] LABS: BASOPHILS # (AUTO) 0.1 K/UL (0.0-0.2); BASOPHILS % (AUTO) 0.2 % (0.0-2.0); DIFFERENTIAL COMMENT 0; EOSINOPHILS # (AUTO) 0.1 K/uL (0.0-0.7); EOSINOPHILS % (AUTO) 0.4 % (0.0-7.0); HEMATOCRIT 24.1 % (31.2-41.9); LYMPHOCYTES # (AUTO) 0.7 K/uL (0.8-4.8); LYMPHOCYTES % (AUTO) 2.3 % (20.5-51.5); MEAN CORPUSCULAR HGB CONC 29 g/dL (32.3-35.6); MEAN CORPUSCULAR VOLUME 116.8 fL (75.5-95.3); MONOCYTES # (AUTO) 1.4 K/uL (0.1-1.30); MONOCYTES % (AUTO) 4.8 % (0.0-11.0); NEUTROPHILS # (AUTO) 27.5 K/uL (1.8-8.9); NEUTROPHILS % (AUTO) 92.3 % (38.5-71.5); PLATELET COUNT (AUTO) 83 K/uL (179-408); RED CELL DISTRIBUTION WIDTH 24.2 % (12.3-17.7); WHITE BLOOD COUNT (AUTO) 29.8 K/uL (3.8-11.8)
[2023-04-21 07:13] LABS: RED BLOOD CELL COUNT(AUTO) 2.07 MIL/uL (3.63-4.92)
[2023-04-21] MEDS: SEVELAMER CARBONATE 800 MG TABLET PO SCH (08:00)
[2023-04-21 08:13] LABS: ALANINE AMINOTRANSFERASE 932 U/L (14-59); ALKALINE PHOSPHATASE 172 U/L (50-136); BILIRUBIN,TOTAL 7.6 mg/dL (0.2-1.0); CALCIUM 9.2 mg/dL (8.5-10.1); CHLORIDE 101 mmol/L (98-107); CREATININE 4.1 mg/dL (0.6-1.3); GLUCOSE 237 mg/dL (74-106); SODIUM SERUM 130 mmol/L (136-145); TOTAL PROTEIN, SERUM 3.7 g/dL (6.4-8.2)
[2023-04-21 08:14] LABS: ALBUMIN 1.5 g/dL (3.4-5.0)
[2023-04-21] MEDS ORDERED: NOREPINEPHRINE BITARTRATE 32 MG in IV NORMAL SALINE 218 ML IV PRN (08:15)
[2023-04-21] MEDS ORDERED: PHENYLEPHRINE IV 50 MG in IV NORMAL SALINE 245 ML IV PRN (08:30)
[2023-04-21 08:32] LABS: CARBON DIOXIDE < 5 mmol/L (21-32); LACTIC ACID 18.7 mmol/L (0.4-2.0); POTASSIUM 6.6 mmol/L (3.5-5.1); UREA NITROGEN, BLOOD 101 mg/dL (7-18)
[2023-04-21 08:54] LABS: ABG BASE EXCESS -32.3 mmol/L (-2.0-2.0); ABG PCO2 30.4 mmHg (35.0-48.0); ABG SITE LEFT BRACHIAL; ABG TOTAL HEMOGLOBIN 7.1 G/dL (12.0-16.0); AaDO2 99.6 mmHg; COHb 0.3 % (0.0-3.9); MetHb 0.8 % (0.0-1.5); O2Hb 98.7 % (94.0-97.0); VT, ABG 500 mL
[2023-04-21] MEDS ORDERED: SODIUM BICARBONATE 8.4% 50 MEQ/50 ML DISP.SYRIN IV STA (08:58)
[2023-04-21] MEDS: REMEDY ESSENTIAL ZINC PASTE 113 GM TOP SCH (09:00)
[2023-04-21] MEDS ORDERED: PANTOPRAZOLE SODIUM 40 MG VIAL IV SCH (09:00)
[2023-04-21] MEDS: METOPROLOL TARTRATE 25 MG TABLET PO SCH (09:00)
[2023-04-21] MEDS ORDERED: DOXYCYCLINE HYCLATE IV 100 MG in IV DEXTROSE 5% 100 ML IV SCH (09:00)
[2023-04-21 09:54] LABS: ASPARTATE AMINOTRANSFERASE < 5 U/L (15-37)
[2023-04-21 10:25] LABS: FIBRINOGEN ACTIVITY < 50 mg/dL (210-360)
[2023-04-21] MEDS: RIFAXIMIN 550 MG TABLET NG SCH (11:17)
[2023-04-21] MEDS ORDERED: diphenhydrAMINE 50 MG/1 ML VIAL IV ONE (12:00)
[2023-04-21] MEDS ORDERED: ACETAMINOPHEN 325 MG TABLET PO ONE (12:00)
[2023-04-21] MEDS ORDERED: PHYTONADIONE 10 MG/1 ML AMPUL SQ ONE (12:00)
[2023-04-21 12:16] LABS: ABG BASE EXCESS -29.6 mmol/L (-2.0-2.0); ABG HCO3 2.8 mmol/L (22.0-26.0); ABG PCO2 19.1 mmHg (35.0-48.0); ABG PH 6.778 (7.340-7.440); ABG PO2 196.8 mmHg (75.0-100.0); ABG SITE RIGHT RADIAL; ABG TOTAL HEMOGLOBIN 6.5 G/dL (12.0-16.0); AaDO2 97.9 mmHg; COHb 0.4 % (0.0-3.9); MetHb 0.8 % (0.0-1.5); O2Hb 97.8 % (94.0-97.0); VT, ABG 500 mL
[2023-04-21] MEDS ORDERED: MORPHINE SULFATE PF IV DRIP 100 MG in IV DEXTROSE 5% 96 ML IV STA (13:46)
[2023-04-21] MEDS ORDERED: DC PROPOFOL ONCE EXTUBATED XX PRN (14:00)
[2023-04-21] MEDS ORDERED: MORPHINE SULFATE PF IV DRIP 100 MG in IV DEXTROSE 5% 96 ML IV PRN (14:30)
[2023-04-21 15:08] LABS: LYMPHOCYTES % (MANUAL) 3 % (20-40); MONOCYTES % (MANUAL) 8 % (2-10); NEUTROPHILS % (MANUAL) 89 % (42-75)
== END 2023-04-21 15:30 | DRG 710 ==
LOC: ER 15:17 → TELE3 20:28 → MEDSURG3 04-08 09:20 → MED 04-17 02:10 → MEDSURG3 04-19 20:35 → CCU 04-20 10:25
PROVIDERS: ADMIT Internal Medicine; ATTEND Nurse Practitioner Acute Care
PROC: 05HD33Z Insertion of Infusion Device into Right Cephalic Vein, Percutaneous Approach (ICD-10-PCS; principal; 2023-04-08)
PROC: 30233N1 Transfusion of Nonautologous Red Blood Cells into Peripheral Vein, Percutaneous Approach (ICD-10-PCS; 2023-04-09)
PROC: 30233M1 Transfusion of Nonautologous Plasma Cryoprecipitate into Peripheral Vein, Percutaneous Approach (ICD-10-PCS; 2023-04-09)
PROC: 0W9G3ZZ Drainage of Peritoneal Cavity, Percutaneous Approach (ICD-10-PCS; 2023-04-15)
PROC: 0W9G3ZZ Drainage of Peritoneal Cavity, Percutaneous Approach (ICD-10-PCS; 2023-04-16)
PROC: 02HV33Z Insertion of Infusion Device into Superior Vena Cava, Percutaneous Approach (ICD-10-PCS; 2023-04-20)
PROC: 30243N1 Transfusion of Nonautologous Red Blood Cells into Central Vein, Percutaneous Approach (ICD-10-PCS; 2023-04-20)
PROC: 0KBS3ZZ Excision of Right Lower Leg Muscle, Percutaneous Approach (ICD-10-PCS; 2023-04-20)
PROC: 5A1935Z Respiratory Ventilation, Less than 24 Consecutive Hours (ICD-10-PCS; 2023-04-21)
PROC: 5A12012 Performance of Cardiac Output, Single, Manual (ICD-10-PCS; 2023-04-21)
PROC: 0BH17EZ Insertion of Endotracheal Airway into Trachea, Via Natural or Artificial Opening (ICD-10-PCS; 2023-04-21)
DX: A41.9 Sepsis, unspecified organism (principal); D65 Disseminated intravascular coagulation [defibrination syndrome]; J96.01 Acute respiratory failure with hypoxia; M72.6 Necrotizing fasciitis; K76.7 Hepatorenal syndrome; D63.8 Anemia in other chronic diseases classified elsewhere; E83.39 Other disorders of phosphorus metabolism; E87.1 Hypo-osmolality and hyponatremia; E88.09 Other disorders of plasma-protein metabolism, not elsewhere classified; N17.0 Acute kidney failure with tubular necrosis; L03.115 Cellulitis of right lower limb; K74.69 Other cirrhosis of liver; K76.82 Hepatic encephalopathy; Z66 Do not resuscitate; Z51.5 Encounter for palliative care; R65.21 Severe sepsis with septic shock; R00.1 Bradycardia, unspecified; L03.116 Cellulitis of left lower limb; E83.119 Hemochromatosis, unspecified; N39.0 Urinary tract infection, site not specified; B96.1 Klebsiella pneumoniae [K. pneumoniae] as the cause of diseases classified elsewhere; Z76.82 Awaiting organ transplant status; R18.8 Other ascites; B95.2 Enterococcus as the cause of diseases classified elsewhere; Z16.24 Resistance to multiple antibiotics; I87.2 Venous insufficiency (chronic) (peripheral); L97.813 Non-pressure chronic ulcer of other part of right lower leg with necrosis of muscle; B37.49 Other urogenital candidiasis; Z59.02 Unsheltered homelessness; F15.10 Other stimulant abuse, uncomplicated; F19.10 Other psychoactive substance abuse, uncomplicated; K75.81 Nonalcoholic steatohepatitis (NASH); I46.8 Cardiac arrest due to other underlying condition; B19.20 Unspecified viral hepatitis C without hepatic coma; K21.9 Gastro-esophageal reflux disease without esophagitis; E87.5 Hyperkalemia; N18.9 Chronic kidney disease, unspecified; I12.9 Hypertensive chronic kidney disease with stage 1 through stage 4 chronic kidney disease, or unspecified chronic kidney disease; K72.10 Chronic hepatic failure without coma; I35.8 Other nonrheumatic aortic valve disorders; E66.9 Obesity, unspecified; Z68.37 Body mass index [BMI] 37.0-37.9, adult
CPT/HCPCS: 36415; 36569; 36600; 70030-TC; 70450; 71045; 73700; 76705; 82746; 82747; 82784; 83550; 83605; 83615; 83690; 83735; 83970; 83986; 84100; 84155; 84165; 84300; 84443; 84484; 84703; 85014; 85018; 85025; 85610; 85730; 86038; 86140; 86334; 86430; 86706; 86803; 86850; 86900; 86901; 86920; 87040; 87340; 88108-TC; 92950; 93005; 93307; 94002; 94760; A4606; A4649; A4663; A6209; A6213; C1758; C9113; G0378; G0480; J0171; J0690; J1100; J1170; J1200; J2060; J2185; J2270; J2274; J2405; J2765; J3010; J3370; J3430; J3490; J7040; J7042; J7050; J7070; P9012; P9016; P9045; P9047